=== PATIENT | female | born 1990 | race Caucasian/White ===

== ENCOUNTER 2017-03-12 22:10 | Emergency (ER) | payer BC, OTHER ==
[~2017-03-12] VITALS: Ht 160 cm; Wt 56.0 kg
[2017-03-12 22:16] VITALS: Ht 160 cm; Wt 56.0 kg
--- NOTE | 2017-03-12 23:17 | ERA ---
ER Documentation Chief Complaint Date/Time DATE: 03/12/17 TIME: 23:14 Chief Complaint painful/burning urination x 2 days. also c/o fever/back pain HPI 26-year-old female with a history of rheumatoid arthritis presenting with her boyfriend with a chief complaint of back pain, fever, chills. Patient had a UTI that was left untreated due to inability to make appointment with family care doctor for the past 1 week. Patient now describes unilateral right back pain along with fever, chills and malaise. Patient is able to tolerate p.o. and denies vomiting. Associated manifestations include dysuria and hematuria. ROS All systems reviewed and are negative except as per history of present illness. Medications Home Meds Active Scripts Ciprofloxacin Hcl* (Ciprofloxacin Hcl*) 500 Mg Tablet, 500 MG PO BID for 10 Days , TAB Prov:SHARAD HAQ PA-C 03/13/17 Allergies Allergies: Coded Allergies: No Known Drug Allergies (Verified Allergy, Unknown, 03/12/17) PMhx/Soc Medical and Surgical Hx: pt denies Surgical Hx Anesthesia Reaction: No Hx Neurological Disorder: No Hx Respiratory Disorders: No Hx Cardiac Disorders: No Hx Psychiatric Problems: No Hx Miscellaneous Medical Probl: Yes (RA; on methotrexate tx) Hx Alcohol Use: Yes (rarely) Hx Substance Use: No Hx Tobacco Use: No Smoking Status: Never smoker Physical Exam Vitals Vital Signs Date Time Temp Pulse Resp B/P Pulse Ox O2 Delivery O2 Flow Rate FiO2 03/13/17 01:15 98.6 102 18 102/67 98 03/12/17 22:16 100.6 130 20 123/79 97 Physical Exam Const: Well-appearing 26-year-old female. Head: Atraumatic Eyes: Normal Conjunctiva ENT: Normal External Ears, Nose and Mouth. Neck: Full range of motion..~ No meningismus. Resp: Clear to auscultation bilaterally Cardio: Regular rate and rhythm, no murmurs Abd: Soft, non tender, non distended. Normal bowel sounds no McBurney's point tenderness. Skin: No petechiae or rashes Back: No midline or flank tenderness. Positive CVA tenderness. Ext: No cyanosis, or edema Neur: Awake and alert Psych: Normal Mood and Affect Gynecological exam deferred. Result Diagram: 4/23/17 2320 4/23/17 2320 Results 24 hrs Laboratory Tests Test 03/12/17 23:20 03/12/17 23:46 White Blood Count 6.010^3/ul Red Blood Count 3.8810^6/ul Hemoglobin 11.5g/dl Hematocrit 34.9% Mean Corpuscular Volume 89.9fl Mean Corpuscular Hemoglobin 29.6pg Mean Corpuscular Hemoglobin Concent 33.0g/dl Red Cell Distribution Width 12.7% Platelet Count 5410^3/UL Mean Platelet Volume 12.9fl Neutrophils % 92.9% Lymphocytes % 6.0% Monocytes % 0.5% Eosinophils % 0.2% Basophils % 0.2% Nucleated Red Blood Cells % 0.0/100WBC Neutrophils # 5.610^3/ul Lymphocytes # 0.410^3/ul Monocytes # 0.010^3/ul Eosinophils # 0.010^3/ul Basophils # 0.010^3/ul Nucleated Red Blood Cells # 0.010^3/ul Urine Color LT. YELLOW Urine Clarity CLEAR Urine pH 6.5 Urine Specific [place] 1.010 Urine Ketones NEGATIVE Urine Nitrite NEGATIVE Urine Bilirubin NEGATIVE Urine Urobilinogen 0.2 E.U./dL Urine Leukocyte Esterase 3+ Urine Microscopic RBC 5-10/HPF Urine Microscopic WBC >200/HPF Urine Squamous Epithelial Cells FEW Urine Bacteria MANY Urine Hemoglobin 2+ Urine Glucose NEGATIVE% Urine Total Protein NEGATIVE Sodium Level 136mmol/L Potassium Level 3.8mmol/L Chloride Level 102mmol/L Carbon Dioxide Level 27mmol/L Anion Gap 11 Blood Urea Nitrogen 8mg/dl Creatinine 0.77mg/dl Glucose Level 107mg/dl Calcium Level 9.8mg/dl Total Bilirubin 0.2mg/dl Direct Bilirubin 0.00mg/dl Indirect Bilirubin 0.2mg/dl Aspartate Amino Transf (AST/SGOT) 24IU/L Alanine Aminotransferase (ALT/SGPT) 28IU/L Alkaline Phosphatase 117IU/L Total Protein 8.4g/dl Albumin 4.2g/dl Globulin 4.20g/dl Albumin/Globulin Ratio 1.00 Lactic Acid Level 1.0mmol/L Current Medications Medications (Trade) Dose Ordered Sig/Maggy Route PRN Reason Start Time Stop Time Status Last Admin Dose Admin Sodium Chloride (NS) 1,000 ml @ 1,000 mls/hr Q1H ONCE IV 03/12/17 23:30 03/13/17 00:29 DC 03/12/17 23:35 Sodium Chloride 1740 ml 1,740 ml BOLUS OVER 2 HOURS STAT IV* 03/12/17 23:21 03/12/17 23:23 DC 03/12/17 23:29 Ceftriaxone Sodium (Rocephin) 50 ml @ 100 mls/hr ONCE STAT IVPB 03/12/17 23:21 03/12/17 23:50 DC 03/12/17 23:36 Procedures/MDM Patient is a 26-year-old female with a history of UTI that has been untreated 1 week. Patient has positive CVA tenderness. Patient has hematuria and dysuria. Patient's most likely diagnosis is pyelonephritis. After evaluation patient's labs are not suggestive of pyelonephritis. With history and symptomology will go ahead and treat urinary tract infection with an extended course to cover for suspected Robe. Patient will be given discharge instructions with return precautions. Have spoken with my attending and he agrees with assessment and plan. Departure Diagnosis: Primary Impression: Cystitis, unspecified with hematuria Additional Impressions: Pyelonephritis Urinary tract infection Qualified Code: N30.01 - Acute cystitis with hematuria Condition: Stable Additional Instructions: Follow up with your PCP within the next 1-3 days for a more thorough evaluation and a possible referral to a specialist. Return the the emergency department immediately if symptoms worsen or change. If you have any questions regarding medications, ask your pharmacist or us before you leave. If any adverse reactions occur while taking your medications, discontinue the treatment and return to the emergency department immediately. Take your medications as directed, and complete the entire course of treatment. SHARAD HAQ PA-C Mar 12, 2017 23:17
[2017-03-12] MEDS ORDERED: SODIUM CHLORIDE 0.9% 1L BAG IV* STA (23:21)
[2017-03-12] MEDS ORDERED: CEFTRIAXONE 1 GM/50 ML (PMX) 50 ML IVPB STA (23:21)
[2017-03-12] MEDS ORDERED: SOD CHLORIDE 0.9% 1,000 ML IV ONE (23:30)
[2017-03-12 23:42] LABS: ADD SCAN DIFF NO
[2017-03-12 23:47] LABS: ABNORMAL IP MESSAGE 1; BASOPHILS % 0.2 % (0.0-2.0); EOSINOPHILS % 0.2 % (0.0-7.0); HEMATOCRIT 34.9 % (37.0-47.0); HEMOGLOBIN 11.5 g/dl (12.0-16.0); LYMPHOCYTES # 0.4 10^3/ul (0.8-2.9); MEAN CORPUSCULAR HEMOGLOBIN 29.6 pg (29.0-33.0); MEAN CORPUSCULAR VOLUME 89.9 fl (82.0-101.0); MEAN PLATELET VOLUME 12.9 fl (7.4-10.4); MONOCYTES % 0.5 % (0.0-11.0); NEUTROPHIL # 5.6 10^3/ul (1.6-7.5); PLATELET COUNT 54 10^3/UL (140-415); RED BLOOD COUNT 3.88 10^6/ul (4.20-5.40); RED CELL DISTRIBUTION WIDTH 12.7 % (11.5-14.5)
[2017-03-12 23:56] LABS: ADD UMIC YES; UR BILIRUBIN (Dip) NEGATIVE (NEGATIVE); UR BLOOD (Dip) 2+ (NEGATIVE); UR CLARITY CLEAR (CLEAR); UR COLOR LT. YELLOW (YELLOW); UR GLUCOSE (Dip) NEGATIVE (NEGATIVE); UR KETONES (Dip) NEGATIVE (NEGATIVE); UR LEUKOCYTE ESTERASE (Dip) 3+ (NEGATIVE); UR NITRITE (Dip) NEGATIVE (NEGATIVE); UR TOTAL PROTEIN (Dip) NEGATIVE (NEGATIVE); UR UROBILINOGEN (Dip) 0.2 E.U./dL (0.1-1.0)
[2017-03-12 23:57] LABS: NEUTROPHILS % 92.9 % (39.0-77.0)
[2017-03-13 00:22] LABS: ALBUMIN 4.2 g/dl (3.3-4.9); BILIRUBIN,INDIRECT 0.2 mg/dl (0-1.1); BILIRUBIN,TOTAL 0.2 mg/dl (0.2-1.3); CALCIUM 9.8 mg/dl (8.4-10.2); CREATININE 0.77 mg/dl (0.44-1.00); POTASSIUM 3.8 mmol/L (3.5-5.1); TOTAL PROTEIN 8.4 g/dl (6.1-8.1)
[2017-03-13 00:51] LABS: UR BACTERIA MANY; UR SQUAMOUS EPITHELIAL CELL FEW
[2017-03-13] MEDS ORDERED: CIPR500T4 PO (01:45)
[2017-03-13 02:19] VITALS: BP 109/64; PULSE 91; RESP 17; TEMP 98.9
[2017-03-13] MEDS ORDERED: PHEN-537 PO (02:26)
== END 2017-03-13 02:29 | disposition home or self-care (01) ==
LOC: FTE 22:10
DX: N30.01 Acute cystitis with hematuria (principal); N12 Tubulo-interstitial nephritis, not specified as acute or chronic
CPT/HCPCS: 80053; 81001; 83605; 85025; 87040; 87086; J0696; J7030; 81003; 96374